=== PATIENT | female | born 1975 | race Caucasian/White ===

== ENCOUNTER 2016-10-30 19:47 | Emergency (ER) | payer SELFPAY ==
[2016-10-30 20:48] LABS: URINE BILIRUBIN NEGATIVE (NEGATIVE); URINE COLOR RED; URINE GLUCOSE (UA) NEGATIVE (NEGATIVE); URINE KETONE NEGATIVE (NEGATIVE)
[2016-10-30 20:49] LABS: URINE BACTERIA NONE SEEN /hpf (NONE SEEN); URINE BLOOD LARGE (NEGATIVE); URINE EPITHELIAL CELLS NONE SEEN /lpf (FEW); URINE PH 5.5; URINE PROTEIN NEGATIVE (NEGATIVE); URINE RBC >100 /hpf (0-5); URINE UROBILINOGEN 0.2 E.U./dL (0.2 - 1.0); URINE WBC NONE SEEN /hpf (0-5)
[2016-10-30] MEDS ORDERED: Morphine Sulfate 4 mg/mL 1mL Syr IVP STA (20:53)
[2016-10-30] MEDS ORDERED: Morphine Sulfate 4 mg/mL 1mL Syr ONE (20:56)
[2016-10-30] MEDS ORDERED: Sodium Chloride 0.9% 1,000 ML IV SCH (21:00)
--- NOTE | 2016-10-30 21:02 | ED Physician Chart ---
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 decided to come to ER for eval has prior hx of kidney stones. last passed a stone about one year ago while on holiday in [place]. does not have any imaging records from that visit. says the pain feels like another stone. no fever, no vomiting. pt reports allergy to NSAIDs says that she once went into renal failure as a result of NSAID administration and was placed on dialysis for a short period. thinks she has another kidney stone. no chest pain, no shortness of breath, pain is sharp radiates from right flank to right inguinal region mod factors: none assoc s/s: none hx from pt. Allergies:: Allergies Allergy/AdvReac Type Severity Reaction Status Date / Time NSAIDS (Non-Steroidal Allergy Verified 10/30/16 20:04 Anti-Inflamma Penicillins [PCN] Allergy Verified 10/30/16 20:04 Vitals:: Vital Signs - 8 hr 10/30/16 10/30/16 10/30/16 19:50 20:00 20:33 Temp 98.6 F 98.6 F HR 80 80 77 RR 18 18 18 BP 133/96 133/96 128/88 O2 Sat % 100 100 100 Historian:: Patient Review:: Nurse's Note Reviewed Review of Systems - Review of Systems General/Constitutional: No fever, No chills, No weight loss, No weakness, No diaphoresis, No edema, No loss of appetite Skin: No skin lesions, No rash, No bruising Head: No headache, No light-headedness Eyes: No loss of vision, No pain, No diplopia ENT: No earache, No nasal drainage, No sore throat, No tinnitus Neck: No neck pain, No swelling, No thyromegaly, No stiffness, No mass noted Cardio Vascular: No chest pain, No palpitations, No PND, No orthopnea, No edema Pulmonary: No SOB, No cough, No sputum, No wheezing GI: No nausea, No vomiting, No diarrhea, No pain, No melena, No hematochezia, No constipation, No hematemesis, Other (right flank pain, right inguinal pain) G/U: No dysuria, No frequency, No hematuria Musculoskeletal: No bone or joint pain, No back pain, No muscle pain Endocrine: No polyuria, No polydipsia Psychiatric: No prior psych history, No depression, No anxiety, No suicidal ideation Hematopoietic: No bruising, No lymphadenopathy Allergic/Immuno: No urticaria, No angioedema Neurological: No syncope, No focal symptoms, No weakness, No paresthesia, No headache, No seizure, No dizziness, No confusion, No vertigo Past Medical History - Past Medical History Past Medical History: No significant medical hx Family History: None Social History: Non Smoker, No Alcohol, No Drug Use, Surgical History: None Psychiatricy History: None Medication: None Family Medical History - Family Member Mother History Unknown: Yes Physical Exam - Physical Examination General/Constitutional: Awake, Well-developed, well-nourished, Alert, No distress, GCS 15, Non-toxic appearing, Ambulatory Head: Atraumatic Eyes: Lids, conjuctiva normal, PERRL, EOMI Skin: Nl inspection, No rash, No skin lesions, No ecchymosis, Well hydrated, No lymphadenopathy ENMT: External ears, nose nl Neck: Nontender, No nuchal rigidity Respiratory: Nl effort/Exclusion, Clear to Auscultation, No Wheeze/Rhonchi/Rales Cardio Vascular: RRR, No murmur, gallop, rubs, NL S1 S2 GI: No tenderness/rebounding/guarding, Normal BS's, Nondistended, No McBurney tenderness : No CVA tenderness Extremities: No tenderness or effusion, Full ROM, normal strength in all extremities, No edema, Normal digits & nails Neuro/Psych: Alert/oriented, Normal sensory exam, Judgement/insight normal, Mood normal Misc: Normal back, No paraspinal tenderness (mild right CVA tenderness, right flank tenderness, no skin changes. no ecchymosis) Labs/Radiology/EKG Results - Lab Results Results: Laboratory Tests 10/30/16 10/30/16 20:00 20:00 Urine Source [place] Urine Color RED Urine Clarity HAZY Urine pH 5.5 Ur Specific [place] 1.015 Urine Protein NEGATIVE Urine Glucose (UA) NEGATIVE Urine Ketones NEGATIVE Urine Blood LARGE H Urine Nitrate NEGATIVE Urine Bilirubin NEGATIVE Urine Urobilinogen 0.2 Ur Leukocyte Esterase NEGATIVE Urine RBC >100 H Urine WBC NONE SEEN Ur Epithelial Cells NONE SEEN Urine Bacteria NONE SEEN Urine Test NEGATIVE - Radiology Results Results: CT abdomen and pelvis (pt with right sided flank pain radiating to right groin) diverticulosis nonobstructive renal stones left side cholecystectomy gastric bypass surgery pacemaker breast implant no acute process RAD READ Assessment - Assessment General Assessment: pt in stable condition during ER stay, improved after meds ED Septic Shock - . Is Septic Shock (SBP<90, OR Lactate>4 mmol\L) present?: No - <6hrs of presentation: Vital Signs: Vital Signs - 8 hr 10/30/16 10/30/16 10/30/16 19:50 20:00 20:33 Temp 98.6 F 98.6 F HR 80 80 77 RR 18 18 18 BP 133/96 133/96 128/88 O2 Sat % 100 100 100 Reassessment (Disposition) - Reassessment Reassessment:: pt stable while in ER, improved after meds. Reassessment Condition:: Improved - Diagnosis Diagnosis:: Kidney stone, recently passed - Aftercare/Follow up Instructions Aftercare/Follow-Up Instructions:: Refer to Discharge Instructions Notes:: go to clinic for recheck tomorrow - Patient Disposition Discharge/Transfer:: Home Condition at Disposition:: Stable, Improved
[2016-10-30 21:14] LABS: % BASOPHILS 0.3 % (0.0-2.0); % EOSINOPHILS 1.4 % (0.0-5.0); % NEUTROPHILS 67.3 % (40.0-80.0); HEMATOCRIT 31.2 % (35.0-45.0); HEMOGLOBIN 10.6 gm/dL (11.7-15.5); MEAN CELL VOLUME 102.1 fl (81-100); MEAN CORPUSCULAR HEMOGLOBIN 34.6 pg (27.0-31.0); MEAN CORPUSCULAR HGB CONC 33.8 pg (28.0-36.0); MEAN PLATELET VOLUME 7.6 fl; NEUTROPHILE ABSOLUTE 2.4 Th/cmm (1.8-8.0); PLATELET COUNT 159 Th/cmm (150-400); RED BLOOD COUNT 3.06 Mil/cmm (3.80-5.10); RED CELL DISTRIBUTION WIDTH 14.5 % (11.5-20.0)
[2016-10-30 21:24] LABS: WHITE BLOOD COUNT 3.7 Th/cmm (4.8-10.8)
[2016-10-30 21:31] LABS: ALB/GLOB RATIO 1.6 (1.0-1.8); ALKALINE PHOSPHATASE 63 U/L (34-104); ANION GAP 11.2 (7.0-16.0); BILIRUBIN,TOTAL 0.3 mg/dL (0.3-1.0); BUN - UREA NITROGEN 11 mg/dL (7-25); BUN/CREATININE RATIO 12.2; CALCIUM SERUM 8.9 mg/dL (8.6-10.3); CARBON DIOXIDE 22.5 mEq/L (21.0-31.0); CHLORIDE 109 mEq/L (98-107); CREATININE - SERUM 0.9 mg/dL (0.6-1.2); GLUCOSE 94 mg/dL (70-105); POTASSIUM SERUM 3.7 mEq/L (3.5-5.1); SGOT 24 U/L (13-39); SGPT/ALT 17 U/L (7-52); SODIUM SERUM 139 mEq/L (136-145)
--- NOTE | 2016-10-31 09:24 | Diagnostic Imaging Report ---
CT scan abdomen and pelvis without intravenous contrast HISTORY pain, renal calculi Total DLP equals 415 CTDI equals 8.4 Prior exams are not available for comparison. Axial sections were obtained from the xiphoid process down to the pubic symphysis. Limited sections through the lower chest demonstrate artifact related to cardiac electrode lead wires and surgical clips. The liver exhibits a homogeneous parenchyma. No focal lesions. The spleen appears normal. Surgical changes noted in the gastric region. Surgical clips are seen in the cristina hepatis region consistent with a prior cholecystectomy. No focal abnormality seen within the pancreas. A punctate nonobstructing calculus is noted within the medullary region of the right kidney. Several small (less than 2 mm) calculi noted within the medullary region of the left kidney. No hydronephrosis. The exam of the pelvis demonstrates preservation of normal fat planes. No abnormal soft tissue masses or abnormal fluid collections. Stool-filled nondilated large bowel noted. IMPRESSION: 1. Surgical changes as described above 2. Bilateral punctate nonobstructing renal calculi
== END 2016-10-30 23:18 | disposition home or self-care (01) ==
LOC: ER 19:47
DX: N20.0 Calculus of kidney (principal); Z88.0 Allergy status to penicillin; Z88.8 Allergy status to other drugs, medicaments and biological substances
CPT/HCPCS: 99285; 96374; 96375; 74176; 36415; 83605; 85025; 81001; 81025; 80053; 87040; J2405; J7030